=== PATIENT | female | born 1995 | race Two or more races ===

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

== ENCOUNTER 2020-04-12 15:09 | Emergency (ER) | payer MEDICAID ==
[~2020-04-12] VITALS: Ht 147.3 cm; Wt 61.2 kg
[2020-04-12 18:20] VITALS: BP 123/69
== END 2020-04-12 18:22 | disposition home or self-care (01) ==
LOC: ER 15:09
DX: J20.9 Acute bronchitis, unspecified (principal); Z32.02 Encounter for pregnancy test, result negative; Z20.828 Contact with and (suspected) exposure to other viral communicable diseases
CPT/HCPCS: 36415; 71045; 81025; 87426

== ENCOUNTER 2020-12-03 07:58 | Emergency (ER) | payer MEDICAID ==
[~2020-12-03] VITALS: Ht 147.3 cm; Wt 63.5 kg
[2020-12-03 09:42] VITALS: BP 107/74
[2020-12-03] MEDS ORDERED: KETOROLAC TROMETH 60MG/2ML VIAL IM ONE (10:30)
[2020-12-03] MEDS ORDERED: ONDANSETRON ODT 4 MG TAB PO ONE (10:30)
[2020-12-03] MEDS ORDERED: METHOCARBAMOL 500 MG TAB PO ONE (10:30)
== END 2020-12-03 11:57 | disposition home or self-care (01) ==
LOC: ER 07:58
DX: S06.0X0A Concussion without loss of consciousness, initial encounter (principal); S16.1XXA Strain of muscle, fascia and tendon at neck level, initial encounter; M54.6 Pain in thoracic spine; W22.01XA Walked into wall, initial encounter; Y93.89 Activity, other specified; Y92.89 Other specified places as the place of occurrence of the external cause; Y99.8 Other external cause status
CPT/HCPCS: 70450; 72040; 72070; 96372; 99284; J1885; Q0162

== ENCOUNTER 2022-06-17 21:54 | Emergency (ER) | payer MEDICAID ==
[~2022-06-17] VITALS: Ht 147.3 cm; Wt 68.0 kg
[2022-06-17] MEDS ORDERED: ACET-1158 PO (23:19)
[2022-06-17] MEDS ORDERED: CYCL-837 PO (23:19)
[2022-06-18 00:02] VITALS: BP 119/72
== END 2022-06-18 00:15 | disposition home or self-care (01) ==
LOC: ER 21:55
DX: S16.1XXA Strain of muscle, fascia and tendon at neck level, initial encounter (principal); S00.03XA Contusion of scalp, initial encounter; W01.198A Fall on same level from slipping, tripping and stumbling with subsequent striking against other object, initial encounter; Y93.89 Activity, other specified; Y92.89 Other specified places as the place of occurrence of the external cause; Y99.8 Other external cause status
CPT/HCPCS: 70450; 72125

== ENCOUNTER 2023-06-02 08:28 | Inpatient (IN) | payer MEDICAID ==
[~2023-06-02] VITALS: Ht 149.9 cm; Wt 69.2 kg
[~2023-06-02 08:28] MED LIST: ACET500T58 PO; CYCL-837 PO
[2023-06-02 08:56] LABS: Basophils # (auto) 0.1 10 ^3/uL (0-0.2); Eosinophils # (auto) 0.1 10 ^3/uL (0-0.8); Eosinophils % (auto) 1.1 % (0.0-7.0); Hematocrit 42.1 % (36.0-46.0); Lymphocytes # (auto) 2.4 10 ^3/uL (0.4-5.4); Lymphocytes % (auto) 18.5 % (10.0-50.0); Mean Corpuscular Hemoglobin 29.1 pg (28.0-32.0); Mean Corpuscular Hgb Conc. 33.2 g/dL (32.0-36.0); Mean Corpuscular Volume 87.7 fL (80.0-100.0); Monocytes # (auto) 0.7 10 ^3/uL (0-1.3); Monocytes % (auto) 5.4 % (0.0-12.0); Neutrophils # (auto) 9.6 10 ^3/uL (1.6-8.6); Nucleated Red Blood Cells % 0.1 %; Red Blood Cells 4.81 10^6/uL (4.0-5.20); Red Cell Distribution Width 13.7 % (11.8-14.3)
[2023-06-02 09:13] LABS: Alanine Aminotransferase 17 U/L (7-40); Albumin 4.3 g/dL (3.2-4.8); Anion Gap 7 (5-15); Aspartate Aminotransferase 9 U/L (13-40); BUN/Creatinine Ratio 9.7 (10.0-20.0); Bilirubin, Total 0.4 mg/dL (0.2-1.0); Blood Urea Nitrogen 6 mg/dL (9-23); Calcium 8.9 mg/dL (8.7-10.4); Carbon Dioxide 26 mmol/L (20-30); Chloride 105 mmol/L (98-107); Glucose 111 mg/dL (74-106); Lipase 35 U/L (12-53); Potassium 3.7 mmol/L (3.5-5.1); Sodium 138 mmol/L (136-145)
[2023-06-02 09:14] LABS: Total Protein 6.9 g/dL (5.7-8.2)
[2023-06-02 09:18] LABS: Alkaline Phosphatase 107 U/L (46-116)
[2023-06-02 09:34] LABS: Urine Bacteria NONE SEEN /hpf (None Seen); Urine Blood Negative /uL (Negative); Urine Clarity Clear (Clear); Urine Color Straw (Yellow); Urine Protein, UAD Negative (Negative); Urine Specific Gravity 1.008 (1.001-1.035); Urine Urobilinogen Normal (Negative); Urine WBC 6 /hpf (0 - 5); Urine pH 7.5 (5.0-8.0)
[2023-06-02 09:40] LABS: Amphetamine Screen, Urine Neg (NEGATIVE)
[2023-06-02 09:41] LABS: Barbiturate Scree,Urine Neg (NEGATIVE); Benzodiazephine Screen, Urine Neg (NEGATIVE); Cannabinoid Screen, Urine Neg (NEGATIVE); Cocaine Screen, Urine Neg (NEGATIVE); Opiate Scree,Urine Neg (NEGATIVE); Phencyclidine Screen, Urine Neg (NEGATIVE)
[2023-06-02] MEDS ORDERED: HYDROcodone-ACET 5/325MG TAB PO ONE (14:00)
[2023-06-02] MEDS ORDERED: cefTRIAXone SOD 1,000 MG VL IM ONE (14:00)
[2023-06-02] MEDS ORDERED: NITR-87 PO (14:23)
[2023-06-02] MEDS ORDERED: metroNIDAZOLE 500MG/100ML 100 ML IV ONE (16:00)
[2023-06-02] MEDS ORDERED: ONDANSETRON HCL 4 MG/2 ML VIAL IV PRN (18:30)
[2023-06-02] MEDS ORDERED: DOCUSATE SOD 100 MG CAP PO PRN (18:30)
[2023-06-02] MEDS: SODIUM CHLORIDE 0.9% 1,000 ML IV SCH (19:51)
[2023-06-02] MEDS ORDERED: SODIUM CHLORIDE 0.9% 1,000 ML IV ONE (20:00)
[2023-06-02] MEDS ORDERED: ACETAMINOPHEN IV 1000 MG/100ML (10MG/ML) IV PRN (20:15)
[2023-06-02 20:25] LABS: INR 1.09 (0.9-1.15); Prothrombin Time 11.4 sec (9.3-11.8)
[2023-06-03] VITALS (8 sets, daily range): BP systolic 100–123; BP diastolic 48–85; PULSE 72–118; RESP 13–19; TEMP 97.8–98.2; O2SAT 85–100
[2023-06-03] MEDS: SODIUM CHLORIDE 0.9% 1,000 ML IV SCH ×3 (00:24→19:30)
[2023-06-03 06:49] LABS: Basophils # (auto) 0.1 10 ^3/uL (0-0.2); Eosinophils # (auto) 0.1 10 ^3/uL (0-0.8); Eosinophils % (auto) 1.5 % (0.0-7.0); Hematocrit 35.3 % (36.0-46.0); Lymphocytes # (auto) 3.3 10 ^3/uL (0.4-5.4); Lymphocytes % (auto) 43.4 % (10.0-50.0); Mean Corpuscular Hemoglobin 29.6 pg (28.0-32.0); Mean Corpuscular Hgb Conc. 33.9 g/dL (32.0-36.0); Mean Corpuscular Volume 87.5 fL (80.0-100.0); Monocytes # (auto) 0.4 10 ^3/uL (0-1.3); Monocytes % (auto) 4.8 % (0.0-12.0); Neutrophils # (auto) 3.8 10 ^3/uL (1.6-8.6); Neutrophils % (auto) 49.3 % (37.0-80.0); Nucleated Red Blood Cells % 0.1 %; Red Blood Cells 4.04 10^6/uL (4.0-5.20); Red Cell Distribution Width 13.9 % (11.8-14.3); White Blood Cell 7.7 10^3/uL (4.4-10.8)
[2023-06-03 07:08] LABS: Alanine Aminotransferase 15 U/L (7-40); Albumin 3.6 g/dL (3.2-4.8); Alkaline Phosphatase 71 U/L (46-116); Anion Gap 6 (5-15); Aspartate Aminotransferase 9 U/L (13-40); BUN/Creatinine Ratio 10.2 (10.0-20.0); Blood Urea Nitrogen 5 mg/dL (9-23); Calcium 8.5 mg/dL (8.5-10.1); Carbon Dioxide 26 mmol/L (20-30); Chloride 108 mmol/L (98-107); Glucose 85 mg/dL (74-106); Potassium 3.5 mmol/L (3.5-5.1); Sodium 140 mmol/L (136-145)
[2023-06-03 07:09] LABS: Bilirubin, Total 0.5 mg/dL (0.2-1.0); Total Protein 5.5 g/dL (5.7-8.2)
[2023-06-03] MEDS: MORPHINE SULFATE INJ 2 MG/ml SYRG IV PRN ×2 (09:18→17:47)
[2023-06-03] MEDS ORDERED: BUPIVACAINE 0.5% P/F INJ 10 ML VIAL ONE (11:04)
[2023-06-03] MEDS ORDERED: HYDROmorphone HCL 2 MG/ML VL/or syr IV PRN ×2 (11:15)
[2023-06-03] MEDS ORDERED: MORPHINE SULFATE INJ 2 MG/ml SYRG IV PRN (11:15)
[2023-06-03] MEDS ORDERED: METOCLOPRAMIDE HCL 5MG/ml INJ 2ml VIAL IV PRN (11:15)
[2023-06-03] MEDS ORDERED: fentaNYL CITRATE 100 MCG/2 ML VL ONE (11:21)
[2023-06-03] MEDS ORDERED: NEOSTIGMINE 1 MG/ML INJ (10mg/10ML VIAL) ONE (11:21)
[2023-06-03] MEDS ORDERED: MIDAZOLAM HCL 2MG/2ML 2ml VIAL (1mg/ml) ONE (11:21)
[2023-06-03] MEDS ORDERED: MEPERIDINE HCL (25 MG/ML) 1ML VIAL ONE (11:21)
[2023-06-03] MEDS ORDERED: SODIUM CHLORIDE LOCK 10 ML ONE (11:22)
[2023-06-03] MEDS ORDERED: PROPOFOL 10 MG/ML 20 ML IV ONE (11:22)
[2023-06-03] MEDS ORDERED: GLYCOPYRROLATE 0.2 MG/ML 1ML VIAL ONE (11:22)
[2023-06-03] MEDS ORDERED: ONDANSETRON HCL 4 MG/2 ML VIAL ONE (11:22)
[2023-06-03] MEDS ORDERED: ROCURONIUM 10MG/ML 10ML VIAL IV ONE (11:24)
[2023-06-03] MEDS ORDERED: ceFAZolin 2 GM/D5W100ml 100 ML IV ONE (11:35)
[2023-06-03] MEDS ORDERED: KETOROLAC TROMETH 60MG/2ML VIAL ONE (12:22)
[2023-06-03] MEDS: D5W/SOD CHL 0.45%/KCL 20MEQ 1,000 ML IV SCH ×2 (12:30→21:15)
[2023-06-03] MEDS ORDERED: HYDROmorphone HCL 2 MG/ML VL/or syr IV ONE ×2 (13:00→13:12)
[2023-06-03] MEDS: cefTRIAXone 1GM/50ML D5W 50 ML IV SCH (15:28)
[2023-06-03] MEDS: metroNIDAZOLE 500MG/100ML 100 ML IV SCH ×2 (16:54→21:14)
[2023-06-03] MEDS ORDERED: PIPERACILLIN-TAZOB 3.375GM 100 ML IV SCH (20:00)
[2023-06-03] MEDS: HYDROcodone-ACET 5/325MG TAB PO PRN (20:59)
[2023-06-04] MEDS: D5W/SOD CHL 0.45%/KCL 20MEQ 1,000 ML IV SCH (04:58)
[2023-06-04] MEDS: HYDROcodone-ACET 5/325MG TAB PO PRN ×3 (05:09→20:37)
[2023-06-04] MEDS: metroNIDAZOLE 500MG/100ML 100 ML IV SCH ×3 (05:24→21:15)
[2023-06-04] MEDS: SODIUM CHLORIDE 0.9% 1,000 ML IV SCH ×3 (05:29→20:37)
[2023-06-04 06:57] LABS: Basophils # (auto) 0.1 10 ^3/uL (0-0.2); Basophils % (auto) 1.1 % (0.0-2.0); Eosinophils # (auto) 0.1 10 ^3/uL (0-0.8); Eosinophils % (auto) 1.2 % (0.0-7.0); Hematocrit 35.8 % (36.0-46.0); Hemoglobin 11.8 g/dL (12.2-16.2); Lymphocytes # (auto) 2.6 10 ^3/uL (0.4-5.4); Lymphocytes % (auto) 36.9 % (10.0-50.0); Mean Corpuscular Hemoglobin 29.6 pg (28.0-32.0); Mean Corpuscular Volume 89.5 fL (80.0-100.0); Monocytes # (auto) 0.4 10 ^3/uL (0-1.3); Monocytes % (auto) 6.4 % (0.0-12.0); Neutrophils # (auto) 3.7 10 ^3/uL (1.6-8.6); Neutrophils % (auto) 54.4 % (37.0-80.0); Nucleated Red Blood Cells % 0.1 %; Red Cell Distribution Width 13.8 % (11.8-14.3); White Blood Cell 6.9 10^3/uL (4.4-10.8)
[2023-06-04 07:00] LABS: Alanine Aminotransferase 12 U/L (7-40); Albumin 3.8 g/dL (3.2-4.8); Alkaline Phosphatase 65 U/L (46-116); Anion Gap 8 (5-15); Aspartate Aminotransferase 11 U/L (13-40); Bilirubin, Total 0.3 mg/dL (0.2-1.0); Calcium 8.6 mg/dL (8.7-10.4); Carbon Dioxide 23 mmol/L (20-30); Chloride 107 mmol/L (98-107); Glucose 107 mg/dL (74-106); Potassium 3.7 mmol/L (3.5-5.1); Sodium 138 mmol/L (136-145); Total Protein 5.9 g/dL (5.7-8.2)
[2023-06-04 07:02] LABS: BUN/Creatinine Ratio 9.8 (10.0-20.0); Blood Urea Nitrogen < 5 mg/dL (9-23)
[2023-06-04 08:00] VITALS: PULSE 82; RESP 20; O2SAT 100
[2023-06-04] MEDS: cefTRIAXone 1GM/50ML D5W 50 ML IV SCH (08:59)
[2023-06-04 09:00] VITALS: BP 108/48; PULSE 82; RESP 20; TEMP 98.2; O2SAT 100
[2023-06-04] MEDS ORDERED: KETOROLAC TROMETH 30 MG/ML 1ML VIAL IV ONE (09:15)
[2023-06-04 13:00] VITALS: BP 105/47; PULSE 96; RESP 21; TEMP 98.3; O2SAT 100
[2023-06-04 17:00] VITALS: BP 99/53; PULSE 74; RESP 20; TEMP 98.1; O2SAT 98
[2023-06-04 20:10] VITALS: RESP 19
[2023-06-04 22:00] VITALS: BP 103/70; PULSE 84; RESP 22; TEMP 99; O2SAT 99
[2023-06-05] MEDS: HYDROcodone-ACET 5/325MG TAB PO PRN (04:22)
[2023-06-05 05:00] VITALS: BP 106/47; PULSE 80; RESP 20; TEMP 98; O2SAT 96
[2023-06-05] MEDS: metroNIDAZOLE 500MG/100ML 100 ML IV SCH (05:20)
[2023-06-05] MEDS: SODIUM CHLORIDE 0.9% 1,000 ML IV SCH (05:33)
[2023-06-05 06:24] LABS: Basophils # (auto) 0.1 10 ^3/uL (0-0.2); Basophils % (auto) 1.1 % (0.0-2.0); Chloride 108 mmol/L (98-107); Eosinophils # (auto) 0.2 10 ^3/uL (0-0.8); Eosinophils % (auto) 2.3 % (0.0-7.0); Hematocrit 37.6 % (36.0-46.0); Hemoglobin 12.4 g/dL (12.2-16.2); Lymphocytes % (auto) 43.4 % (10.0-50.0); Mean Corpuscular Hemoglobin 29.4 pg (28.0-32.0); Mean Corpuscular Hgb Conc. 32.9 g/dL (32.0-36.0); Mean Corpuscular Volume 89.2 fL (80.0-100.0); Monocytes # (auto) 0.5 10 ^3/uL (0-1.3); Monocytes % (auto) 6.6 % (0.0-12.0); Neutrophils # (auto) 3.2 10 ^3/uL (1.6-8.6); Neutrophils % (auto) 46.6 % (37.0-80.0); Nucleated Red Blood Cells % 0.1 %; Potassium 4.1 mmol/L (3.5-5.1); Red Blood Cells 4.22 10^6/uL (4.0-5.20); Red Cell Distribution Width 13.7 % (11.8-14.3); Sodium 139 mmol/L (136-145); White Blood Cell 6.9 10^3/uL (4.4-10.8)
[2023-06-05 06:25] LABS: Anion Gap 7 (5-15); Calcium 8.9 mg/dL (8.5-10.1); Carbon Dioxide 24 mmol/L (20-30)
[2023-06-05 06:30] LABS: Glucose 90 mg/dL (74-106)
[2023-06-05 07:01] LABS: BUN/Creatinine Ratio 8.6 (10.0-20.0); Blood Urea Nitrogen < 5 mg/dL (9-23)
[2023-06-05 08:00] VITALS: PULSE 71; RESP 15; O2SAT 97
[2023-06-05] MEDS: cefTRIAXone 1GM/50ML D5W 50 ML IV SCH (08:48)
[2023-06-05 09:00] VITALS: BP 115/71; PULSE 71; RESP 15; TEMP 97.9; O2SAT 97
[2023-06-05] MEDS ORDERED: DOCU-94 PO (10:17)
[2023-06-05] MEDS ORDERED: TRAM50TA2 PO (10:17)
[2023-06-05] MEDS ORDERED: LEVO500T91 PO (10:17)
[2023-06-05] MEDS ORDERED: MET500T PO (10:17)
[2023-06-05 11:05] VITALS: BP 115/71; PULSE 71; RESP 15; TEMP 97.9; O2SAT 97
[2023-06-05 12:51] VITALS: BP 117/66; PULSE 85; RESP 16; TEMP 98.2; O2SAT 99
== END 2023-06-05 12:30 | disposition home or self-care (01) | DRG 710 ==
LOC: ER 08:28 → OVERFLOW 18:30 → CENTRAL 23:28
PROVIDERS: ADMIT Nurse Practitioner Family; ATTEND Internal Medicine
PROC: 0DTJ4ZZ Resection of Appendix, Percutaneous Endoscopic Approach (ICD-10-PCS; principal; 2023-06-03 11:42)
DX: A41.9 Sepsis, unspecified organism (principal); N30.01 Acute cystitis with hematuria; K35.80 Unspecified acute appendicitis; E66.9 Obesity, unspecified; Z68.30 Body mass index [BMI] 30.0-30.9, adult
CPT/HCPCS: 36415; 74176; 80048; 80053; 80307; 81001; 83605; 83690; 84702; 85025; 85610; 86850; 86900; 86901; 86905; 87040; 87086; 96365; 96372; 96375; G0378; J0131; J0696; J1885; J2250; J2405; J2704; J3490

== ENCOUNTER 2023-11-19 00:15 | Emergency (ER) | payer MEDICAID ==
[~2023-11-19] VITALS: Ht 149.9 cm; Wt 74.1 kg
[~2023-11-19 00:15] MED LIST changes: +DOCU-94 PO; +LEVO500T91 PO; +MET500T PO; +NITR-87 PO; +TRAM50TA2 PO
[2023-11-19 02:24] LABS: Basophils # (auto) 0.1 10 ^3/uL (0-0.2); Basophils % (auto) 0.6 % (0.0-2.0); Eosinophils # (auto) 0.1 10 ^3/uL (0-0.8); Eosinophils % (auto) 1.1 % (0.0-7.0); Hematocrit 40.5 % (36.0-46.0); Hemoglobin 13.5 g/dL (12.2-16.2); Lymphocytes # (auto) 3.6 10 ^3/uL (0.4-5.4); Lymphocytes % (auto) 36.1 % (10.0-50.0); Mean Corpuscular Hemoglobin 29.7 pg (28.0-32.0); Mean Corpuscular Hgb Conc. 33.4 g/dL (32.0-36.0); Mean Corpuscular Volume 88.8 fL (80.0-100.0); Monocytes # (auto) 0.8 10 ^3/uL (0-1.3); Monocytes % (auto) 7.9 % (0.0-12.0); Neutrophils # (auto) 5.4 10 ^3/uL (1.6-8.6); Neutrophils % (auto) 54.3 % (37.0-80.0); Nucleated Red Blood Cells % 0.1 %; Red Blood Cells 4.56 10^6/uL (4.0-5.20); Red Cell Distribution Width 13.5 % (11.8-14.3)
[2023-11-19 02:30] LABS: Alanine Aminotransferase 19 U/L (7-40); Alkaline Phosphatase 114 U/L (46-116); Calcium 9.5 mg/dL (8.7-10.4); Carbon Dioxide 27 mmol/L (20-30); Chloride 107 mmol/L (98-107)
[2023-11-19 02:31] LABS: Albumin 4.4 g/dL (3.2-4.8); Anion Gap 8 (5-15); Aspartate Aminotransferase 8 U/L (13-40); BUN/Creatinine Ratio 22.4 (10.0-20.0); Bilirubin, Total 0.3 mg/dL (0.2-1.0); Blood Urea Nitrogen 13 mg/dL (9-23); Glucose 110 mg/dL (74-106); Lipase 33 U/L (12-53); Sodium 142 mmol/L (136-145); Total Protein 7.1 g/dL (5.7-8.2)
[2023-11-19 04:05] LABS: Urine Bacteria FEW /hpf (None Seen); Urine Blood Negative /uL (Negative); Urine Clarity Turbid (Clear); Urine Color Light-Yellow (Yellow); Urine Protein, UAD TRACE (Negative); Urine Specific Gravity 1.024 (1.001-1.035); Urine Urobilinogen Normal (Negative); Urine WBC 48 /hpf (0 - 5)
[2023-11-19 04:43] VITALS: PULSE 86; RESP 12; O2SAT 99
[2023-11-19] MEDS: ONDANSETRON HCL 4 MG/2 ML VIAL IV ONE (05:00)
[2023-11-19] MEDS: MORPHINE SULFATE 4 MG/ML SYR/VIAL IV ONE (05:01)
[2023-11-19] MEDS ORDERED: ACET-1304 PO (05:08)
[2023-11-19] MEDS ORDERED: CEPH500C PO (05:08)
[2023-11-19] MEDS ORDERED: DICY10CA PO (05:08)
[2023-11-19] MEDS ORDERED: IBUP-1455 PO (05:08)
[2023-11-19 05:30] VITALS: TEMP 98; O2SAT 100
[2023-11-19 05:31] VITALS: BP 112/77; PULSE 84; RESP 14
== END 2023-11-19 05:38 | disposition home or self-care (01) ==
LOC: ER 00:15
DX: N39.0 Urinary tract infection, site not specified (principal); Z98.890 Other specified postprocedural states; Z79.899 Other long term (current) drug therapy
CPT/HCPCS: 36415; 74176; 80053; 81001; 81025; 83605; 83690; 85025; 96374; 96375; 99285; J2270; J2405

== ENCOUNTER 2024-01-15 09:51 | Emergency (ER) | payer MEDICAID ==
[~2024-01-15] VITALS: Ht 149.9 cm; Wt 70.0 kg
[~2024-01-15 09:51] MED LIST changes: +ACET-1304 PO; +CEPH500C PO; +DICY10CA PO; +IBUP-1455 PO
[2024-01-15 10:02] VITALS: BP 139/80; PULSE 128; RESP 18; O2SAT 97
[2024-01-15 10:48] LABS: Basophils # (auto) 0.1 10 ^3/uL (0-0.2); Basophils % (auto) 0.7 % (0.0-2.0); Eosinophils # (auto) 0.1 10 ^3/uL (0-0.8); Eosinophils % (auto) 0.6 % (0.0-7.0); Hemoglobin 13.6 g/dL (12.2-16.2); Lymphocytes # (auto) 2.9 10 ^3/uL (0.4-5.4); Mean Corpuscular Hemoglobin 30.2 pg (28.0-32.0); Mean Corpuscular Volume 88.7 fL (80.0-100.0); Monocytes # (auto) 0.4 10 ^3/uL (0-1.3); Monocytes % (auto) 4.1 % (0.0-12.0); Neutrophils # (auto) 6.6 10 ^3/uL (1.6-8.6); Neutrophils % (auto) 65.6 % (37.0-80.0); Red Blood Cells 4.51 10^6/uL (4.0-5.20); White Blood Cell 10.1 10^3/uL (4.4-10.8)
[2024-01-15 11:09] LABS: Chloride 105 mmol/L (98-107); Potassium 3.4 mmol/L (3.5-5.1); Sodium 138 mmol/L (136-145)
[2024-01-15 11:10] LABS: Anion Gap 7 (5-15); Calcium 9.6 mg/dL (8.7-10.4); Carbon Dioxide 26 mmol/L (20-30)
[2024-01-15 11:15] LABS: BUN/Creatinine Ratio 19.2 (10.0-20.0); Blood Urea Nitrogen 10 mg/dL (9-23); Glucose 118 mg/dL (74-106)
[2024-01-15 12:12] LABS: Urine Bacteria FEW /hpf (None Seen); Urine Blood 1+ /uL (Negative); Urine Clarity Clear (Clear); Urine Color Light-Yellow (Yellow); Urine Mucus FEW (None Seen); Urine Protein, UAD Negative (Negative); Urine Urobilinogen Normal (Negative); Urine WBC 7 /hpf (0 - 5)
[2024-01-15] MEDS ORDERED: CEPH250C PO (12:57)
== END 2024-01-15 14:09 | disposition home or self-care (01) ==
LOC: ER 09:51
DX: O23.41 Unspecified infection of urinary tract in pregnancy, first trimester (principal); R10.2 Pelvic and perineal pain; O26.891 Other specified pregnancy related conditions, first trimester; Z3A.11 11 weeks gestation of pregnancy; Z98.890 Other specified postprocedural states; Z79.899 Other long term (current) drug therapy
CPT/HCPCS: 36415; 76801; 80048; 81001; 84702; 85025; 86900; 86901

== ENCOUNTER 2024-02-11 17:25 | Emergency (ER) | payer MEDICAID ==
[~2024-02-11] VITALS: Ht 149.9 cm; Wt 71.9 kg
[~2024-02-11 17:25] MED LIST changes: +CEPH250C PO
[2024-02-11 19:10] LABS: Basophils # (auto) 0 10 ^3/uL (0-0.2); Basophils % (auto) 0.3 % (0.0-2.0); Eosinophils # (auto) 0.1 10 ^3/uL (0-0.8); Eosinophils % (auto) 1.1 % (0.0-7.0); Hematocrit 35.4 % (36.0-46.0); Lymphocytes # (auto) 2.4 10 ^3/uL (0.4-5.4); Lymphocytes % (auto) 27.8 % (10.0-50.0); Mean Corpuscular Hemoglobin 30.5 pg (28.0-32.0); Mean Corpuscular Volume 89.6 fL (80.0-100.0); Monocytes # (auto) 0.4 10 ^3/uL (0-1.3); Neutrophils # (auto) 5.7 10 ^3/uL (1.6-8.6); Neutrophils % (auto) 65.8 % (37.0-80.0); Platelet Count (auto) 271 10^3/uL (140-450); Red Blood Cells 3.95 10^6/uL (4.0-5.20); Red Cell Distribution Width 13.3 % (11.8-14.3); White Blood Cell 8.7 10^3/uL (4.4-10.8)
[2024-02-11 19:36] LABS: Chloride 109 mmol/L (98-107); Potassium 3.8 mmol/L (3.5-5.1); Sodium 138 mmol/L (136-145)
[2024-02-11 19:37] LABS: Anion Gap 7 (5-15); Calcium 9.2 mg/dL (8.7-10.4); Carbon Dioxide 22 mmol/L (20-30)
[2024-02-11 19:42] LABS: Blood Urea Nitrogen 10 mg/dL (9-23); Glucose 124 mg/dL (74-106)
[2024-02-11 20:33] LABS: Urine Amorphous Crystal FEW /hpf (None Seen); Urine Bacteria FEW /hpf (None Seen); Urine Blood Negative /uL (Negative); Urine Clarity Ex.Turbid (Clear); Urine Color Colorless (Yellow); Urine Protein, UAD Negative (Negative); Urine Urobilinogen Normal (Negative); Urine WBC 10 /hpf (0 - 5); Urine pH 7.5 (5.0-9.0)
[2024-02-11] MEDS: ACETAMINOPHEN 500 MG TAB PO ONE (23:55)
[2024-02-11 23:56] VITALS: BP 115/67; PULSE 85; RESP 17; TEMP 98.3; O2SAT 98
== END 2024-02-11 23:58 | disposition home or self-care (01) ==
LOC: ER 17:25
DX: O9A.212 Injury, poisoning and certain other consequences of external causes complicating pregnancy, second trimester (principal); R10.2 Pelvic and perineal pain; S30.1XXA Contusion of abdominal wall, initial encounter; Z3A.15 15 weeks gestation of pregnancy; Z98.890 Other specified postprocedural states; Z79.899 Other long term (current) drug therapy; W50.0XXA Accidental hit or strike by another person, initial encounter; Y93.89 Activity, other specified; Y92.89 Other specified places as the place of occurrence of the external cause; Y99.8 Other external cause status
CPT/HCPCS: 36415; 76805; 80048; 81001; 84702; 85025

== ENCOUNTER 2024-06-11 16:22 | Observation (INO) | payer MEDICAID ==
[2024-06-11] MEDS ORDERED: PREN1TAB71 OR (16:57)
--- NOTE | 2024-06-11 17:22 | DVHDS2 ---
Physician Discharge Progress N Final Diagnosis: POLYHYDRAMNIA Operations or Procedures: Operations or Procedures NST,SONO Condition on Discharge: Good Disposition: Home Discharge Instructions: Diet: Regular Activity: No Restrictions, As Tolerated Medications: NA Follow Up Care: Specialist: 2D Discharge Statement: "Patient was advised to return to the ER or call 911 if any headaches, dizziness, shortness of breath, chest pain, abdominal pain, bleeding, fevers, or worsening of medical condition. Patient was counseled about treatment plan, medications, possible side effects, patientverbalized understanding. All questions were answered to the best of my ability. This discharge took greater then 30 minutes in planning, reviewing documentation, counseling the patient, and discussing with other team members." ADOLFO FOX DO Jun 11, 2024 17:22
--- NOTE | 2024-06-11 17:28 | DVH ---
EXAM: US BIOPHYSICAL PROFILE HISTORY: poly COMPARISON: None TECHNIQUE: Multiple transabdominal real-time grayscale sonographic images through the gravid uterus of the fetus with duplex Doppler color flow and M-mode spectral analysis Findings/Impression: Single live intrauterine in breech presentation with heart rate of 152 bpm. Biophysical profile was performed with 2 points for respirations, 2 points for movement, 2 points for tone and 2 points for amniotic fluid index. Biophysical profile score of 8/8. Amniotic fluid is within normal limits with LUIS 22.8 cm and MVP 8.6 cm.
== END 2024-06-11 18:09 | disposition home or self-care (01) ==
LOC: LDRP 16:22
PROVIDERS: ADMIT Obstetrics & Gynecology; ATTEND Obstetrics & Gynecology
DX: O40.3XX0 Polyhydramnios, third trimester, not applicable or unspecified (principal); Z98.890 Other specified postprocedural states; Z79.899 Other long term (current) drug therapy; Z3A.32 32 weeks gestation of pregnancy
CPT/HCPCS: 59025; 76818; 81002; 94760; G0378

== ENCOUNTER 2024-07-17 13:17 | Observation (INO) | payer MEDICAID ==
[~2024-07-17 13:17] MED LIST changes: +PREN1TAB71 OR
--- NOTE | 2024-07-17 14:24 | DVH ---
BIOPHYSICAL PROFILE HISTORY: Polyhydramnios. Comparison Study: 06/11/2024 TECHNIQUE: Multiple real-time grayscale sonographic images through the gravid uterus of the fetus wi th duplex Doppler color flow and M-mode spectral analysis FINDINGS: BIOPHYSICAL PROFILE: breathing score: 2 movement score: 2 tone score: 2 Quantitative LUIS score: 2 (LUIS: 20.6 Cm.). MVP is 7.7 cm. Total score: 8 The cervix is suboptimally evaluated. Single live fetus in transverse (maternal right) presentation. heart rate 171 beats per minute. Fundal placenta without previa or abruption IMPRESSION: 1. Biophysical profile score: 8 / 8 2. LUIS is 20.6 cm. MVP is 7.7 cm.
--- NOTE | 2024-07-17 14:47 | DVHDS2 ---
Physician Discharge Progress N Final Diagnosis: POLYHYDRAMNIA,NONCOMPLIANCY Operations or Procedures: Operations or Procedures NST,SONO PT SEEN URGED TO BE COMPLIANT WITH OB FU ,SHE HAS MOISEED OB VISITS AND IS SUPPOSED TO BE DOING NST/BPP BIWKLY Condition on Discharge: Good Disposition: Home Discharge Instructions: Diet: Regular Activity: No Restrictions, As Tolerated Medications: NA Follow Up Care: Specialist: 3D Discharge Statement: "Patient was advised to return to the ER or call 911 if any headaches, dizziness, shortness of breath, chest pain, abdominal pain, bleeding, fevers, or worsening of medical condition. Patient was counseled about treatment plan, medications, possible side effects, patientverbalized understanding. All questions were answered to the best of my ability. This discharge took greater then 30 minutes in planning, reviewing documentation, counseling the patient, and discussing with other team members." Visit Coding OBGYN Date of Service: Jul 17, 2024 Billing Provider: ADOLFO FOX DO LINE LEADER Common Visit Codes: 91546-XPHJIGH OBS CARE (HIGH) LINE LEADER Consultation Codes: 39257-XFVERCVIQ CONSULT <40MIN LINE LEADER Procedure Codes: 74078-85- NON-STRESS TEST ADOLFO FOX DO Jul 17, 2024 14:47
== END 2024-07-17 14:43 | disposition home or self-care (01) ==
LOC: LDRP 13:17
PROVIDERS: ADMIT Obstetrics & Gynecology; ATTEND Obstetrics & Gynecology
DX: O40.3XX0 Polyhydramnios, third trimester, not applicable or unspecified (principal); O99.513 Diseases of the respiratory system complicating pregnancy, third trimester; R06.02 Shortness of breath; Z3A.37 37 weeks gestation of pregnancy; Z98.890 Other specified postprocedural states; Z79.899 Other long term (current) drug therapy
CPT/HCPCS: 59025; 76818; 81002; 94760; G0378

== ENCOUNTER 2024-07-20 07:34 | Observation (INO) | payer MEDICAID ==
--- NOTE | 2024-07-20 10:37 | DVH ---
BIOPHYSICAL PROFILE HISTORY: Polyhydrominos TECHNIQUE: Multiple transabdominal real-time grayscale sonographic images through the gravid uterus of the fetus with duplex Doppler color flow and M-mode spectral analysis FINDINGS: BIOPHYSICAL PROFILE: breathing score: 2 movement score: 2 tone score: 2 Quantitative LUIS score: 2 (LUIS: 19.0 Cm.) Total score: 8/8 heart rate 141 beats per minute. Fundal placenta without previa or abruption IMPRESSION: 1. Biophysical profile score: 8/8
--- NOTE | 2024-07-20 11:11 | DVHDS2 ---
Physician Discharge Progress N Final Diagnosis: polyhydramnia resolved Operations or Procedures: Operations or Procedures nst,sono Condition on Discharge: Good Disposition: Home Discharge Instructions: Diet: Regular Activity: No Restrictions, As Tolerated Medications: na Follow Up Care: Specialist: 4d Discharge Statement: "Patient was advised to return to the ER or call 911 if any headaches, dizziness, shortness of breath, chest pain, abdominal pain, bleeding, fevers, or worsening of medical condition. Patient was counseled about treatment plan, medications, possible side effects, patientverbalized understanding. All questions were answered to the best of my ability. This discharge took greater then 30 minutes in planning, reviewing documentation, counseling the patient, and discussing with other team members." Visit Coding OBGYN Date of Service: Jul 20, 2024 Billing Provider: ADOLFO FOX DO RN ADMIT Common Visit Codes: 61183-[id number] INP/OBS CARE (MOD) RN ADMIT Procedure Codes: 09802-86- NON-STRESS TEST ADOLFO FOX DO Jul 20, 2024 11:11
== END 2024-07-20 11:03 | disposition home or self-care (01) ==
LOC: LDRP 09:47 → UNDOADMOB 09:47 → LDRP 09:57
PROVIDERS: ADMIT Obstetrics & Gynecology; ATTEND Obstetrics & Gynecology
DX: Z36.89 Encounter for other specified antenatal screening (principal); Z3A.37 37 weeks gestation of pregnancy
CPT/HCPCS: 59025; 76818; 81002; 94760; G0378

== ENCOUNTER 2024-07-27 10:43 | Observation (INO) | payer MEDICAID ==
[2024-07-27 11:47] LABS: Eosinophils # (auto) 0 10 ^3/uL (0-0.8); Lymphocytes # (auto) 2.5 10 ^3/uL (0.4-5.4); Monocytes # (auto) 0.4 10 ^3/uL (0-1.3); Neutrophils # (auto) 4.8 10 ^3/uL (1.6-8.6)
[2024-07-27 11:48] LABS: Basophils # (auto) 0 10 ^3/uL (0-0.2); Basophils % (auto) 0.6 % (0.0-2.0); Eosinophils % (auto) 0.5 % (0.0-7.0); Hematocrit 34.1 % (36.0-46.0); Mean Corpuscular Hemoglobin 25.8 pg (28.0-32.0); Mean Corpuscular Hgb Conc. 32.2 g/dL (32.0-36.0); Mean Corpuscular Volume 80.2 fL (80.0-100.0); Monocytes % (auto) 5.4 % (0.0-12.0); Neutrophils % (auto) 61.5 % (37.0-80.0); Nucleated Red Blood Cells % 0.1 %; Platelet Count (auto) 209 10^3/uL (140-450); Red Blood Cells 4.25 10^6/uL (4.0-5.20); Red Cell Distribution Width 14.8 % (11.8-14.3); White Blood Cell 7.9 10^3/uL (4.4-10.8)
[2024-07-27 11:53] LABS: Urine Bacteria FEW /hpf (None Seen); Urine Blood Negative /uL (Negative); Urine Clarity Clear (Clear); Urine Color Light-Yellow (Yellow); Urine Mucus FEW (None Seen); Urine Protein, UAD Negative (Negative); Urine Specific Gravity 1.019 (1.001-1.035); Urine Squamous Epithelial Cell MOD /hpf (<5); Urine Urobilinogen Normal (Negative); Urine WBC 1 /HPF (0-5); Urine pH 6.5 (5.0-9.0)
[2024-07-27 12:02] LABS: INR 0.95 (0.9-1.15); Partial Thromboplastin Time 27.1 SEC (24.5-34.5); Prothrombin Time 10.1 sec (9.3-11.8)
[2024-07-27 12:03] LABS: Protein, Urine 18.6 mg/dL (1-14)
[2024-07-27 12:06] LABS: Creatinine, Urine 79.13 mg/dL (30.0-125.0); Urine Protein/Creatinine Ratio 0.24
[2024-07-27 12:09] LABS: Albumin 3.7 g/dL (3.2-4.8); Anion Gap 11 (5-15); BUN/Creatinine Ratio 18.4 (10.0-20.0); Calcium 9.2 mg/dL (8.7-10.4); Carbon Dioxide 22 mmol/L (20-31); Chloride 106 mmol/L (98-107); Glucose 80 mg/dL (74-106); Potassium 3.8 mmol/L (3.5-5.1); Sodium 139 mmol/L (136-145)
[2024-07-27 12:10] LABS: Alanine Aminotransferase < 9 U/L (7-40); Alkaline Phosphatase 176 U/L (46-116); Aspartate Aminotransferase < 8 U/L (13-40); Bilirubin, Total 0.3 mg/dL (0.2-1.0); Blood Urea Nitrogen 9 mg/dL (9-23); Total Protein 5.9 g/dL (5.7-8.2)
--- NOTE | 2024-07-27 15:22 | DVHDS2 ---
Physician Discharge Progress N Final Diagnosis: 38wks pih refuses labs and iv fluid and further evaluation refuses induction Operations or Procedures: Operations or Procedures nst,jamalo 38wks Condition on Discharge: Undetermined Disposition: AMA Discharge Instructions: Diet: Consistent carbohydrate, See Comment Activity: Medications: na Follow Up Care: Specialist: left ama Discharge Statement: "Patient was advised to return to the ER or call 911 if any headaches, dizziness, shortness of breath, chest pain, abdominal pain, bleeding, fevers, or worsening of medical condition. Patient was counseled about treatment plan, medications, possible side effects, patientverbalized understanding. All questions were answered to the best of my ability. This discharge took greater then 30 minutes in planning, reviewing documentation, counseling the patient, and discussing with other team members." Visit Coding OBGYN Date of Service: Jul 27, 2024 Billing Provider: ADOLFO FOX DO HVAC LEAD Common Visit Codes: 24012-PMC/OBS DISCH DAY >30MIN HVAC LEAD Consultation Codes: 44405-T/U INPATIENT CONSULT (MOD) HVAC LEAD Procedure Codes: 55670-40- NON-STRESS TEST ADOLFO FOX DO Jul 27, 2024 15:21
== END 2024-07-27 12:24 | disposition home or self-care (01) ==
LOC: UNDOADMOB 10:43 → LDRP 10:43 → UNDODISOB 12:24
PROVIDERS: ADMIT Obstetrics & Gynecology; ATTEND Obstetrics & Gynecology
DX: O13.3 Gestational [pregnancy-induced] hypertension without significant proteinuria, third trimester (principal); Z98.890 Other specified postprocedural states; Z79.899 Other long term (current) drug therapy; Z3A.38 38 weeks gestation of pregnancy
CPT/HCPCS: 36415; 59025; 80053; 81001; 81002; 82570; 83036; 84156; 84550; 85025; 85610; 85730; 86850; 86900; 86901; 94760; G0378

== ENCOUNTER 2024-08-06 11:43 | Observation (INO) | payer MEDICAID ==
--- NOTE | 2024-08-06 12:50 | DVH ---
CLINICAL HISTORY: Term COMPARISON: US BIOPHYSICAL PROFILE on DOS: 07/20/24, US BIOPHYSICAL PROFILE on DOS: 07/17/24, US BIOPHYS ICAL PROFILE on DOS: 06/11/24 TECHNIQUE: biophysical profile was performed. Transabdominal sonographic images of the fetus we re obtained. FINDINGS: The fetus is in transverse position with head to the maternal right. heart rate measures 165 BPM. Amniotic fluid index measures 16.9 cm. The placenta is fundal in position. BPP profile is an overall score of 8/8, with 2/2 points for breathing, with at least one episode of breathing over a 30 second duration during a 30 minute observation, 2/2 points for m ovements, with 3 or more discrete body or limb movements, 2/2 points for tone, with one or more episodes of extremity extension with return to flexion, or opening and closing of hand, and 2/ 2 points for amniotic fluid, with at least 1 pocket of amniotic fluid that measures 2 cm in 2 perpend icular planes. IMPRESSION: 1. BPP score of 8/8. 2. Transverse presentation with head to the maternal right.
--- NOTE | 2024-08-06 12:59 | DVHDS2 ---
Physician Discharge Progress N Final Diagnosis: postdatesv ,transverse lie Operations or Procedures: Operations or Procedures nst,sono Consultations: Consultations pt seen and counseled re absolute need for pcs ,risk of cord prolapse ,iufd d/w pt . pt is adment about not having cs till but finally agreed to having it done on thursday Condition on Discharge: Good Disposition: Home Discharge Instructions: Diet: Regular Activity: Light activity Medications: na Follow Up Care: Specialist: 2d Discharge Statement: "Patient was advised to return to the ER or call 911 if any headaches, dizzine ss, shortness of breath, chest pain, abdominal pain, bleeding, fevers, or worsening of medical condition. Patient was counseled about treatment plan, medications, possible side effects, patientverbalized understanding. All questions were answered to the best of my ability. This discharge took greater then 30 minutes in planning, reviewing documentation, counseling the patient, and discussing with other team members." Visit Coding OBGYN Date of Service: Aug 06, 2024 Billing Provider: ADOLFO FOX DO CHANGE PERSON Common Visit Codes: 10862-[id number] INP/OBS CARE (HIGH) CHANGE PERSON Consultation Codes: 95295-[id number] CONSULT <80MIN CHANGE PERSON Procedure Codes: 86397-45- NON-STRESS TEST ADOLFO FOX DO Aug 06, 2024 12:59
[2024-08-06 13:25] LABS: Basophils # (auto) 0 10 ^3/uL (0-0.2); Basophils % (auto) 0.4 % (0.0-2.0); Eosinophils # (auto) 0 10 ^3/uL (0-0.8); Eosinophils % (auto) 0.4 % (0.0-7.0); Hematocrit 32.4 % (36.0-46.0); Hemoglobin 10.7 g/dL (12.2-16.2); Lymphocytes # (auto) 2.2 10 ^3/uL (0.4-5.4); Lymphocytes % (auto) 30.4 % (10.0-50.0); Mean Corpuscular Hemoglobin 26.2 pg (28.0-32.0); Mean Corpuscular Hgb Conc. 33.1 g/dL (32.0-36.0); Mean Corpuscular Volume 79.2 fL (80.0-100.0); Monocytes # (auto) 0.5 10 ^3/uL (0-1.3); Monocytes % (auto) 7.1 % (0.0-12.0); Neutrophils # (auto) 4.4 10 ^3/uL (1.6-8.6); Neutrophils % (auto) 61.7 % (37.0-80.0); Nucleated Red Blood Cells % 0.2 %; Platelet Count (auto) 216 10^3/uL (140-450); Red Blood Cells 4.09 10^6/uL (4.0-5.20); Red Cell Distribution Width 15.5 % (11.8-14.3); White Blood Cell 7.2 10^3/uL (4.4-10.8)
[2024-08-06 13:39] LABS: Albumin 3.8 g/dL (3.2-4.8); Anion Gap 9 (5-15); Aspartate Aminotransferase 18 U/L (13-40); Blood Urea Nitrogen 13 mg/dL (9-23); Calcium 9.4 mg/dL (8.7-10.4); Carbon Dioxide 22 mmol/L (20-31); Glucose 89 mg/dL (74-106); Potassium 3.7 mmol/L (3.5-5.1); Sodium 139 mmol/L (136-145); Total Protein 6.3 g/dL (5.7-8.2)
[2024-08-06 13:40] LABS: Alanine Aminotransferase < 9 U/L (7-40); Alkaline Phosphatase 198 U/L (46-116); Bilirubin, Total 0.2 mg/dL (0.2-1.0); Chloride 108 mmol/L (98-107)
[2024-08-06 13:40] LABS: Amphetamine Screen, Urine Neg (NEGATIVE); Barbiturate Scree,Urine Neg (NEGATIVE); Benzodiazephine Screen, Urine Neg (NEGATIVE); Cannabinoid Screen, Urine Neg (NEGATIVE); Cocaine Screen, Urine Neg (NEGATIVE); Opiate Scree,Urine Neg (NEGATIVE); Phencyclidine Screen, Urine Neg (NEGATIVE)
[2024-08-06 13:48] LABS: Urine Bacteria FEW /hpf (None Seen); Urine Blood Negative /uL (Negative); Urine Clarity Turbid (Clear); Urine Color Yellow (Yellow); Urine Mucus FEW (None Seen); Urine Protein, UAD TRACE (Negative); Urine Specific Gravity 1.026 (1.001-1.035); Urine Squamous Epithelial Cell MANY /hpf (<5); Urine Urobilinogen Normal (Negative); Urine WBC 9 /HPF (0-5)
[2024-08-06 13:57] LABS: INR 0.94 (0.9-1.15)
[2024-08-09 08:07] LABS: RPR Non Reactive (Non Reactive)
[2024-08-11 12:06] LABS: Treponema Pallidum Ab LC Reactive (Non Reactive)
== END 2024-08-06 14:57 | disposition left against medical advice (07) ==
LOC: LDRP 11:43 → UNDODISOB 12:44
PROVIDERS: ADMIT Obstetrics & Gynecology; ATTEND Obstetrics & Gynecology
DX: O48.0 Post-term pregnancy (principal); O32.2XX0 Maternal care for transverse and oblique lie, not applicable or unspecified; R79.1 Abnormal coagulation profile; Z3A.40 40 weeks gestation of pregnancy; Z79.899 Other long term (current) drug therapy
CPT/HCPCS: 36415; 59025; 76819; 80053; 80307; 81001; 81002; 85025; 85610; 85730; 86592; 86780; 86803; 94760; 96360; 96361; G0378; 76818

== ENCOUNTER 2025-06-01 10:41 | Emergency (ER) | payer MEDICAID ==
[~2025-06-01] VITALS: Ht 149.9 cm; Wt 68.3 kg
--- NOTE | 2025-06-01 11:44 | ED.PDOC ---
GI ASSESSMENT HPI Comments 29y F who presents to the ED for chief complaint of nausea and vomiting. Pt states she was at work 3x days prior and states she ate food that has been left out for a few days. Pt states since, she has been having nausea, vomiting, and diarrhea with noted loose bowel movements. Pt states she has had more than 15x bowel movement daily and came today for evaluation due to persistence of her symptoms. Pt has noted heart rate of 110 with otherwise stable vitals. Pt denies any other symptoms. Chief Complaint: Abdominal Pain Time Seen by MD: 11:39 Primary Care Provider: [facility] Reviewed Notes: Medications, Allergies Allergies: Coded Allergies: NO KNOWN ALLERGIES (Unverified , 07/12/15) Home Meds Active Scripts Acetaminophen (Tylenol Extra Strength) 500 Mg Tab, 1000 MG PO Q6HP PRN, #30 TAB Prov:FELIPE SHIRLEY MD 02/11/24 Cephalexin (KEFLEX CAPSULE) 250 Mg Cp, 500 MG PO QID for 7 Days, #28 CAP Prov:RICHARDSON NIEVES MD 01/15/24 Ibuprofen Micronized (Ibuprofen) 800 Mg Tab, 800 MG PO Q8HPRN PRN, #30 TAB Prov:FELIPE SHIRLEY MD 11/19/23 Dicyclomine Hcl (BENTYL CAPSULE) 10 Mg Cp, 1-2 CAP PO Q6HPRN PRN, #30 CAP 3 R efills Prov:FELIPE SHIRLEY MD 11/19/23 Acetaminophen (Tylenol Extra Strength) 500 Mg Tab, 1000 MG PO Q6HP PRN, #30 TAB Prov:FELIPE SHIRLEY MD 11/19/23 Cephalexin Monohydrate (Cephalexin) 500 Mg Cap, 1 CAP PO QID for 10 Days, #40 CAP Prov:FELIPE SHIRLEY MD 11/19/23 Tramadol Hcl (Tramadol Hcl) 50 Mg Tab, 50 MG PO TIDP PRN for 6 Days, #18 TAB Prov:DIALLO DOHERTY MD 06/05/23 Docusate Sodium (Colace) 100 Mg Cap, 1 CAP PO BID PRN for 15 Days, #45 CAP Prov:DIALLO DOHERTY MD 06/05/23 Metronidazole (Metronidazole) 500 Mg Tab, 500 MG PO TID for 7 Days, #21 TAB Prov:DIALLO DOHERTY MD 06/05/23 Levofloxacin Hemihydrate (LEVAQUIN 500 MG) 500 Mg Tab, 500 MG PO DAILY for 7 Days, #7 TAB Prov:DIALLO DOHERTY MD 06/05/23 Nitrofurantoin Monohydrate Mac (Macrobid) 100 Mg Cap, 100 MG PO BID for 7 Days, #14 CAP Prov:GASTON DENIS MD 06/02/23 Cyclobenzaprine Hcl (Cyclobenzaprine Hcl) 5 Mg Tab, 1 TAB PO QPM PRN, #14 TAB 0 Refills Prov:SONIYA PRIEST 06/17/22 Acetaminophen (Acetaminophen) 500 Mg Tab, 500 MG PO QIDP, #30 TAB 0 Refills Prov:SONIYA PRIEST 06/17/22 Reported Medications Vit W/ Ferrous Fumara (PNV PLUS MULTIVI) Plus Tab, 1 OR, TAB 06/11/24 Information Source: Patient Mode of Arrival: Ambulatory Brought in by: self Past Medical History PAST MEDICAL HISTORY: Denies Surgical History: Appendectomy CONCRETE HANDLER History: No Pertinent CONCRETE HANDLER History Family History Family History: Reviewed,noncontributory to illness, Family hx of HTN Social History Smoker: Non-Smoker Alcohol: Denies ETOH Use Drugs: Denies Drug Use Lives In: Home Constitutional: denies: chills, diaphoresis, fatigue, fever, malaise, sweats, weakness, others EENTM: denies: blurred vision, double vision, ear bleeding, ear discharge, ear drainage, ear pain, ear ringing, eye pain, eye redness, hearing loss, mouth pain, mouth swelling, nasal discharge, nose bleeding, nose congestion, nose pain, photophobia, tearing, throat pain, throat swelling, voice changes, others Respiratory: denies: cough, hemoptysis, orthopnea, SOB at rest, shortness of breath, SOB with excertion, stridor, wheezing, others Cardiovascular: denies: chest pain, dizzy spells, diaphoresis, Dyspnea on exertion, edema, irregular heart beat, left arm pain, lightheadedness, palpitations, PND, syncope, others Gastrointestinal: reports: abdominal pain, diarrhea, nausea, vomiting; denies: abdomen distended, blood streaked bowels, constipated, dysphagia, difficulty swallowing, hematemesis, melena, poor appetite, poor fluid intake, rectal bleeding, rectal pain, others Genitourinary: denies: abnormal vagina bleeding, burning, dyspareunia, dysuria, flank pain, frequency, hematuria, incontinence, pain, , vagina di scharge, urgency, others Neurological: denies: dizziness, fainting, headache, left sided numbness, left sided weakness, numbness, paresthesia, pre-existing deficit, right sided numbness, right sided weakness, seizure, speech problems, tingling, tremors, weakness, others Musculoskeletal: denies: back pain, gout, joint pain, joint swelling, muscle pain, muscle stiffness, neck pain, others Integumetry: denies: bruises, change in color, change in hair/nails, dryness, laceration, lesions, lumps, rash, wounds, others Allergic/Immunocompromised: denies: Difficulty Healing, Frequent Infections, Hives, Itching, others Hematologic/Lymphatic: denies: anemia, blood clots, easy bleeding, easy bruising, swollen glands, others Endocrine: denies: excessive hunger, excessive sweating, excessive thirst, excessive urination, flushing, intolerance to cold, intolerance to heat, unexplained weight gain, unexplained weight loss, others Psychiatric: denies: anxiety, bipolar disorder, depression, hopeless, panic disorder, schizophrenia, sleepless, suicidal, others All Other Systems: Reviewed and Negative Physical Exam General Appearance: Moderate Distress HEENT: Normal ENT Inspection, Pharynx Normal, TMs Normal Neck: Full Range of Motion, Non-Tender, Normal, Normal Inspection Respiratory: Chest Non-Tender, Lungs Clear, No Accessory Muscle Use, No Respiratory Distress, Normal Breath Sounds Cardiovascular: No Edema, No JVD, No Murmur, No Gallop, Normal Peripheral Pulses, Regular Rate/Rhythm Breast Exam: Deferred Gastrointestinal: No Organomegaly, Non Tender, No Pulsatile Mass, Normal Bowel Sounds, Soft Genitalia: Deferred Pelvic: Deferred Rectal: Deferred Extremities: No calf tenderness, Normal capillary refill, Normal inspection, Normal range of motion, Non-tender, No pedal edema Musculoskeletal : Apperance: Normal Neurologic: Alert, photographer finish II-XII nml as Tested, No Motor Deficits, Normal Affect, Normal Mood, No Sensory Deficits Cerebellar Function: Normal Reflexes: Normal Skin: Dry, Normal Color, Warm Peripheral Pulses: 3+ Radial (R), 3+ Radial (L) Lymphatic: No Adenopathy Was a procedure done? Was a procedure done?: No GI differential Dx Differential Diagnosis: Constipation, Diverticular disease, Esophagitis, Gastritis/PUD, Gastroenteritis, Pancreatitis, Dehydration, Electrolyte Imbalance, Food Poisoning, Bacterial, Viral X-Ray, Labs, Meds, VS Vital Signs Date Time Temp Pulse Resp B/P (MAP) Pulse Ox O2 Delivery O2 Flow Rate FiO2 06/01/25 13:37 98.0 94 18 108/68 (81) 97 98.0 06/01/25 12:06 98.5 125 18 141/75 (97) 98 98.5 06/01/25 12:05 125 18 98 Room Air* 0 21 06/01/25 10:42 98.5 110 18 119/84 98 98.5 Lab Test 06/01/25 11:46 Range/Units White Blood Count 11.6 H 4.4-10.8 10^3/uL Red Blood Count 5.27 H 4.0-5.20 10^6/uL Hemoglobin 15.3 12.2-16.2 g/dL Hematocrit 45.4 36.0-46.0 % Mean Corpuscular Volume 86.1 80.0-100.0 fL Mean Corpuscular Hemoglobin 29.0 28.0-32.0 pg Mean Corpuscular Hemoglobin Concent 33.7 32.0-36.0 g/dL Red Cell Distribution Width 13.4 11.8-14.3 % Platelet Count 422 140-450 10^3/uL Mean Platelet Volume 7.8 6.9-10.8 fL Neutrophils (%) (Auto) 72.9 37.0-80.0 % Lymphocytes (%) (Auto) 20.7 10.0-50.0 % Monocytes (%) (Auto) 5.4 0.0-12.0 % Eosinophils (%) (Auto) 0.4 0.0-7.0 % Basophils (%) (Auto) 0.6 0.0-2.0 % Neutrophils # (Auto) 8.4 1.6-8.6 10 ^3/uL Lymphocytes # (Auto) 2.4 0.4-5.4 10 ^3/uL Monocytes # (Auto) 0.6 0-1.3 10 ^3/uL Eosinophils # (Auto) 0 0-0.8 10 ^3/uL Basophils # (Auto) 0.1 0-0.2 10 ^3/uL Nucleated Red Blood Cells 0.0 % Sodium Level 137 136-145 mmol/L Potassium Level 3.4 L 3.5-5.1 mmol/L Chloride Level 103 98-107 mmol/L Carbon Dioxide Level 23 20-31 mmol/L Anion Gap 11 5-15 Blood Urea Nitrogen 13 9-23 mg/dL Creatinine 0.74 0.550-1.02 mg/dL Glomerular Filtration Rate Calc 114 >90 mL/min BUN/Creatinine Ratio 17.6 10.0-20.0 Serum Glucose 127 H 74-106 mg/dL Calcium Level 9.8 8.7-10.4 mg/dL Current Medications Medications (Trade) Dose Ordered Sig/Cali Route Start Time Stop Time Status Last Admin Sodium Chloride 1,000 ml @ 1,000 mls/hr Q1H ONCE IVB 06/01/25 11:15 06/01/25 12:14 DC 06/01/25 12:07 Patient alert. Came in because of nausea vomiting. Vitals stable. Answering questions. Establish intravenous access. Was given fluids. WBC slightly elevated. Hemoglobin within normal limits. Neutrophils within normal limits. Abdomen is soft nontender. No leg swelling. No shortness a breath. Explained to the patient. Was told to follow up with her primary care physician. Was told to come back if there is any problem. Time of 1ST Reevaluation: 12:10 Reevaluation 1ST: Unchanged Patient Education/Counseling: Diagnosis, Treatment Family Education/Counseling: No Family Present SEPSIS Sepsis Screen Date sepsis recognized/suspect: Jun 01, 2025 Time Sepsis recognized/suspect: 1050 Recent Procedure: No On Antibiotic Therapy: No Respiratory Rate >20: No Heart Rate >90: No Temp<36 C (96.8 F) or >38.3 C: No SBP <90 or MAP <65 mmHG: No New Acute Mental Status Change: No Is the patient on CPAP, BIPAP,: No Physician Orders Urinalysis (06/01/25 11:12) Ct Ab Pel Wo Con-No Oral Or Iv (06/01/25 12:55) Vital Signs Date Time Temp Pulse Resp B/P (MAP) Pulse Ox O2 Delivery O2 Flow Rate FiO2 06/01/25 13:37 98.0 94 18 108/68 (81) 97 98.0 06/01/25 12:06 98.5 125 18 141/75 (97) 98 98.5 06/01/25 12:05 125 18 98 Room Air* 0 21 06/01/25 10:42 98.5 110 18 119/84 98 98.5 Laboratory Tests Test 06/01/25 11:46 White Blood Count 11.6 10^3/uL (4.4-10.8) H Medications Medications Dose Ordered Sig/Cali Route Start Time Stop Time Status Last Admin Dose Admin Sodium Chloride 1,000 ml @ 1,000 mls/hr Q1H ONCE IVB 06/01/25 11:15 06/01/25 12:14 DC 06/01/25 12:07 Departure 1 Departure Time of Disposition: 12:54 Impression: Primary Impression: Non-specific colitis Disposition: 01 HOME / SELF CARE / HOMELESS Condition: Good e-Prescriptions Metronidazole (Flagyl) 500 Mg Tab 1 TAB PO TID for 5 Days, #15 TAB Prov: GASTON DENIS MD 06/01/25 Amoxicillin Trihydrate (Amoxicillin) 500 Mg Cap 1 CAP PO TID for 5 Days, #15 CAP Prov: GASTON DENIS MD 06/01/25 Discharged With: Self Critical Care Note Critical Care Time?: No Stability Stability form required: No Heart Score Heart Score: Heart Score Response (Comments) Value History N/A 0 EKG N/A 0 Age N/A 0 Risk Factors N/A 0 Troponin N/A 0 Total 0 I personally scribed for GASTON DENIS MD ([email or web address]) on 06/01/25 at 11:44. Electronically submitted by Radha Nunes ([email or web address]). GASTON DENIS MD Jun 01, 2025 11:44
[2025-06-01 12:05] VITALS: PULSE 125; RESP 18; O2SAT 98
[2025-06-01] MEDS: ONDANSETRON HCL 4 MG/2 ML VIAL IV ONE (12:07)
[2025-06-01] MEDS: KETOROLAC TROMETH 30 MG/ML 1ML VIAL IV ONE (12:07)
[2025-06-01] MEDS: SODIUM CHLORIDE 0.9% 1,000 ML IVB ONE (12:07)
[2025-06-01 12:21] LABS: Hematocrit 45.4 % (36.0-46.0); Hemoglobin 15.3 g/dL (12.2-16.2); Mean Corpuscular Hemoglobin 29.0 pg (28.0-32.0); Mean Corpuscular Volume 86.1 fL (80.0-100.0); Nucleated Red Blood Cells % 0.0 %
[2025-06-01 12:34] LABS: Chloride 103 mmol/L (98-107); Sodium 137 mmol/L (136-145)
[2025-06-01 12:35] LABS: Anion Gap 11 (5-15); Calcium 9.8 mg/dL (8.7-10.4); Carbon Dioxide 23 mmol/L (20-31); Potassium 3.4 mmol/L (3.5-5.1)
[2025-06-01 12:40] LABS: BUN/Creatinine Ratio 17.6 (10.0-20.0); Blood Urea Nitrogen 13 mg/dL (9-23)
[2025-06-01 12:42] LABS: Glucose 127 mg/dL (74-106)
--- NOTE | 2025-06-01 13:50 | DVH ---
CLINICAL HISTORY: enteritis TECHNIQUE: CT of the abdomen and pelvis was performed without IV contrast. This exam was performed according to our departmental dose optimization program. Up-to-date CT equipment and radiation dose reduction techniques are utilized as appropriate. CTDI 9.8 DLP 536 COMPARISON: CT CT AB PEL WO CON-NO ORAL OR IV on DOS: 11/19/23, CT CT AB PEL WO CON-NO ORAL OR IV on DOS: 06/02/23 FINDINGS: Abdomen/Pelvis: The spleen, pancreas, adrenal glands, kidneys, gallbladder, liver, and uterus are grossly unremarkable. The bladder is not well distended therefore not well evaluated. The abdominal aorta is normal in course and caliber. There are no significant atherosclerotic calcifications. There is no free intraperitoneal air or fluid. There is no enlarged abdominal pelvic lymph node. There is no small bowel wall thickening or dilatation. The appendix is surgically absent. There is [id number] colonic wall thickening. Other: The imaged lower thorax is unremarkable. No acute osseous abnormality is evident. IMPRESSION: [id number] colonic wall thickening, which may represent colitis or be secondary to underdistention.
[2025-06-01] MEDS ORDERED: AMOX500C2 PO (14:08)
[2025-06-01] MEDS ORDERED: METR-344 PO (14:08)
[2025-06-01 14:50] VITALS: BP 110/61; PULSE 93; RESP 16; TEMP 98.1; O2SAT 99
== END 2025-06-01 14:57 | disposition home or self-care (01) ==
LOC: ER 10:41
DX: K52.9 Noninfective gastroenteritis and colitis, unspecified (principal); Z79.899 Other long term (current) drug therapy; Z90.49 Acquired absence of other specified parts of digestive tract
CPT/HCPCS: 36415; 74176; 80048; 85025; 96360; 99284; J7030; J1885; J2405